=== PATIENT | male | born 2000 | race Two or more races ===

== ENCOUNTER 2024-04-19 10:07 | Emergency (ER) | payer OTHER ==
[~2024-04-19] VITALS: Ht 177.8 cm; Wt 90.7 kg
[2024-04-19] MEDS ORDERED: PRED20TA PO (11:07)
[2024-04-19] MEDS ORDERED: DIPH25CA83 PO (11:07)
[2024-04-19] MEDS ORDERED: FAMO-131 PO (11:07)
[2024-04-19] MEDS ORDERED: EPIN0.3P3 IM (11:07)
[2024-04-19 11:16] VITALS: BP 116/77; TEMP 98.3; O2SAT 98
== END 2024-04-19 11:16 ==
LOC: ER 10:19
DX: T78.40XA Allergy, unspecified, initial encounter (principal); R22.0 Localized swelling, mass and lump, head; F19.10 Other psychoactive substance abuse, uncomplicated; Z59.00 Homelessness unspecified; X58.XXXA Exposure to other specified factors, initial encounter

== ENCOUNTER 2024-06-26 08:44 | Emergency (ER) | payer OTHER ==
[~2024-06-26] VITALS: Ht 177.8 cm; Wt 115.7 kg
[~2024-06-26 08:44] MED LIST: DIPH25CA83 PO; EPIN0.3P3 IM; FAMO-131 PO; PRED20TA PO
[2024-06-26 09:28] VITALS: BP 140/87; TEMP 98.5; O2SAT 96
[2024-06-26] MEDS ORDERED: BUPR8TAB4 SL (15:21)
== END 2024-06-26 09:29 ==
LOC: ER 08:53
DX: Z02.89 Encounter for other administrative examinations (principal); R06.02 Shortness of breath

== ENCOUNTER 2024-06-26 15:04 | Emergency (ER) | payer OTHER ==
[~2024-06-26] VITALS: Ht 170.2 cm; Wt 102.1 kg
[2024-06-26] MEDS ORDERED: BUPR8TAB4 SL (15:21)
[2024-06-26] MEDS ORDERED: BUPRENORPHINE HCL 2 MG TAB.SUBL SL ONE (15:22)
[2024-06-26] MEDS: BUPRENORPHINE HCL 2 MG TAB.SUBL SL ONE (15:26)
[2024-06-26 15:29] VITALS: BP 146/65; TEMP 98; O2SAT 97
== END 2024-06-26 15:29 ==
LOC: ER 15:12
DX: Z02.89 Encounter for other administrative examinations (principal); F11.23 Opioid dependence with withdrawal; F41.9 Anxiety disorder, unspecified; R06.02 Shortness of breath; Z79.52 Long term (current) use of systemic steroids